=== PATIENT | female | born 1990 | race Caucasian/White ===

== ENCOUNTER 2019-01-05 07:52 | Inpatient (IN) | payer OTHER ==
[~2019-01-05] VITALS: Ht 154.9 cm; Wt 48.3 kg
[~2019-01-05 07:52] MED LIST: FERR27TA PO; PREN1TAB49 PO
[2019-01-05] MEDS ORDERED: ONDANSETRON (ODT) 4 MG TAB ODT STA (08:09)
[2019-01-05] MEDS ORDERED: HYDROCODONE/APAP (5/325) TAB PO ONE (08:30)
[2019-01-05] MEDS ORDERED: SOD CHLORIDE 0.9% 1,000 ML IV STA (08:43)
[2019-01-05] MEDS ORDERED: KETOROLAC 30 MG INJ IV STA (08:43)
[2019-01-05] MEDS ORDERED: CEFTRIAXONE 1 GM/50 ML (PMX) 50 ML IVPB ONE (09:00)
--- NOTE | 2019-01-05 11:12 | EN ---
Date/Time of Note Date/Time of Note DATE: 01/05/19 TIME: 11:11 ER Progress Note I have discussed the patient along with the PA and/or REHAB MANAGER provider. I agree with the evaluation and plan of care. Please see their documentation for full ER course and evaluation. In short: Patient presents with flank pain, hematuria Assessment and plan: Patient with evidence of urinary tract infection and ureteral stone concerning for infected stone. The patient is hemodynamically stable, given appropriate antibiotics but warrants hospitalization and urology consultation. I spoke with Dr. Lezama who agrees. Accepting care team and consultations: I discussed the current laboratory data, diagnostic imaging and emergency care provided. Admitting team: Dr. Wilson Admitting team indication: Insurance directed YOMAIRA MCDONOUGH MD Jan 05, 2019 11:12
[2019-01-05] MEDS ORDERED: ACETAMINOPHEN 325 MG TAB PO PRN (11:30)
[2019-01-05] MEDS ORDERED: LORAZEPAM 2 MG INJ IV PRN (11:30)
[2019-01-05] MEDS ORDERED: ALBUTEROL/IPRATROPIUM (NEB) 3 ML AMP HHN PRN (11:30)
[2019-01-05] MEDS ORDERED: DOCUSATE SODIUM 100 MG CAP PO PRN (11:30)
[2019-01-05] MEDS ORDERED: NACL 0.9% 3 ML SYG IV SCH (11:30)
[2019-01-05] MEDS ORDERED: MAGNESIUM HYDROXIDE 30ML CUP PO PRN (11:30)
[2019-01-05] MEDS ORDERED: hydrALAzine 20 MG INJ IV PRN (11:30)
[2019-01-05] MEDS ORDERED: NITROGLYCERIN (SL) 0.4 MG TAB SL PRN (11:30)
[2019-01-05] MEDS ORDERED: ONDANSETRON 4 MG INJ IV PRN ×2 (11:30)
[2019-01-05] MEDS ORDERED: morphine 2 MG INJ IV PRN (11:30)
[2019-01-05] MEDS: SOD CHLORIDE 0.9% 1,000 ML IV SCH ×2 (11:55→22:54)
[2019-01-05 13:04] VITALS: BP 132/72; PULSE 86; RESP 20
--- NOTE | 2019-01-05 13:25 | ERD ---
ER Documentation Chief Complaint Chief Complaint painful urination since yesterday, took azo pain worse today HPI 28-year-old female presenting with dysuria times 1 day. She is taking Azo. She has some severe pain to the right flank with no fevers. She denies hematuria. Has never had this before. Has not taken medication for pain. No other medical problems. NKDA. Surgical history denies. Social history denies ROS All systems reviewed and are negative except as per history of present illness. Medications Home Meds Reported Medications Ferrous Sulfate (Iron) 1 Tab Tablet, 1 TAB PO 08/10/12 Vits W-Ca,Fe,Fa(<1MG) () 1 Tab Tablet, 1 TAB PO 08/10/12 Allergies Allergies: Coded Allergies: No Known Allergies (Verified Allergy, Mild, 08/10/12) PMhx/Soc History of Surgery: No Anesthesia Reaction: No Hx Neurological Disorder: No Hx Respiratory Disorders: No Hx Cardiac Disorders: No Hx Psychiatric Problems: No Hx Miscellaneous Medical Probl: No Hx Alcohol Use: No Hx Substance Use: No Hx Tobacco Use: No Smoking Status: Never smoker FmHx Family History: No diabetes, No coronary disease, No other Physical Exam Vitals Vital Signs Date Temp Pulse Resp B/P (MAP) Pulse Ox O2 O2 Flow FiO2 Time Delivery Rate 01/05/19 98.1 109 18 127/70 100 07:53 (89) Physical Exam GENERAL: The patient is well-appearing, well-nourished, in no acute distress HEENT: Atraumatic. Conjunctivae are pink. Pupils equal, round, and reactive to light. There is no scleral icterus. Tympanic membranes clear bilaterally. Oropharynx clear. NECK: C-spine is soft and supple. There is no meningismus. There is no cervical lymphadenopathy. CHEST: Clear to auscultation bilaterally. There are no rales, wheezes or rhonchi. HEART: Regular rate and rhythm. No murmurs, clicks, rubs or gallops. ABDOMEN:Soft, nontender and nondistended. Good bowel sounds. No rebound or guarding. No gross peritonitis. No gross organomegaly or masses. BACK: Right sided CVAT Result Diagram: 01/05/19 0856 01/05/19 0856 Results 24 hrs Laboratory Tests Test 01/05/19 08:14 01/05/19 08:18 4 08:56 Urine Color TRAVIS Urine Clarity SLIGHTLY CLOUDY Urine pH 5.0 Urine Specific [place] 1.018 Urine Ketones NEGATIVE mg/dL Urine Nitrite POSITIVE mg/dL Urine Bilirubin NEGATIVE mg/dL Urine Urobilinogen 2+ mg/dL Urine Leukocyte Esterase NEGATIVE Taylor/ul Urine Microscopic RBC > 182 /HPF Urine Microscopic WBC 15 /HPF Urine Squamous Epithelial Cells MODERATE /HPF Urine Bacteria FEW /HPF Urine Mucus FEW /HPF Urine Hemoglobin 3+ mg/dL Urine Glucose NEGATIVE mg/dL Urine Total Protein 1+ mg/dl POC Beta HCG, Qualitative NEGATIVE White Blood Count 19.4 10^3/ul Red Blood Count 5.64 10^6/ul Hemoglobin 15.5 g/dl Hematocrit 47.0 % Mean Corpuscular Volume 83.3 fl Mean Corpuscular Hemoglobin 27.5 pg Mean Corpuscular 33.0 g/dl Hemoglobin Concent Red Cell Distribution Width 12.0 % Platelet Count 277 10^3/UL Mean Platelet Volume 9.4 fl Immature Granulocytes % 0.600 % Neutrophils % 84.2 % Lymphocytes % 9.8 % Monocytes % 4.7 % Eosinophils % 0.3 % Basophils % 0.4 % Nucleated Red Blood Cells % 0.0 /100WBC Immature Granulocytes # 0.110 10^3/ul Neutrophils # 16.4 10^3/ul Lymphocytes # 1.9 10^3/ul Monocytes # 0.9 10^3/ul Eosinophils # 0.1 10^3/ul Basophils # 0.1 10^3/ul Nucleated Red Blood Cells # 0.0 10^3/ul Sodium Level 140 mmol/L Potassium Level 3.4 mmol/L Chloride Level 102 mmol/L Carbon Dioxide Level 26 mmol/L Anion Gap 12 Blood Urea Nitrogen 8 mg/dl Creatinine 0.62 mg/dl Est Glomerular Filtrat > 60 mL/min Rate mL/min Glucose Level 103 mg/dl Calcium Level 9.6 mg/dl Total Bilirubin 0.7 mg/dl Direct Bilirubin 0.00 mg/dl Indirect Bilirubin 0.7 mg/dl Aspartate Amino Transf (AST/SGOT) 24 IU/L Alanine 22 IU/L Aminotransferase (ALT/SGPT) Alkaline Phosphatase 93 IU/L Total Protein 7.8 g/dl Albumin 4.8 g/dl Globulin 3.00 g/dl Albumin/Globulin Ratio 1.60 Lipase 81 U/L Current Medications Medications Dose Sig/Bob Start Time Status Last (Trade) Ordered Route PRN Stop Time Admin Dose Reason Admin 1 tab ONCE ONCE 01/05/19 DC 01/05/19 Acetaminophen PO 08:30 01/05/19 08:16 / 08:31 Hydrocodone Bitart ([place] (5/325)) Ondansetron 4 mg ONCE STAT 01/05/19 DC 01/05/19 HCl (Zofran ODT 08:09 01/05/19 08:16 Odt) 08:11 Sodium 1,000 ml @ Q1H STAT 01/05/19 DC 01/05/19 Chloride 1,000 mls/hr IV 08:43 01/05/19 08:56 09:42 Ketorolac 30 mg ONCE STAT 01/05/19 DC 01/05/19 Tromethamine IV 08:43 01/05/19 08:57 (Toradol) 08:44 Ceftriaxone 50 ml @ ONCE ONCE 01/05/19 DC 01/05/19 Sodium 100 mls/hr IVPB 09:00 01/05/19 08:57 09:29 Procedures/MDM DIAGNOSTIC IMAGING REPORT Patient: JEREMY CHAVEZ : 1990 Age: 28 Sex: F MR #: [id number] DOS: 01/05/19 0843 Ordering MD: JEREL BELLO PA-C Location: E Room/Bed: PROCEDURE: CT abdomen and pelvis without contrast. CLINICAL INDICATION: Abdominal pain. Back pain. Dysuria. TECHNIQUE: CT scan of the abdomen and pelvis without contrast was performed and is reconstructed at 2.5 mm contiguous axial intervals from the dome of the diaphragm to the inferior pubic rami.. The patient was scanned without intravenous contrast. Sagittal and coronal reformatted images were obtained from the axial source images. The calculated radiation dose measures 243 mGy centimeters. The CTDI measures 85 mGy. Individualized dose optimization technique was used for the performance of this exam. This included 1. Automated exposure control. 2. Adjustment of the mA and / or kV according to the patient's size. 3. Use of iterative reconstructed technique. DICOM images are available COMPARISON: None. FINDINGS: The lung bases are clear of any infiltrate or nodule. No effusion is seen. The liver is of normal size, contour and attenuation with no solid mass or duct al dilatation. There is a 6 mm cyst on the anterior aspect of the left lobe of the liver. No gallstones are visualized. No splenic, adrenal or pancreatic abnormalities present. Kidneys are of normal size and contour. No calculus or masses seen. There is moderate right hydroureter nephrosis. Noted is a 6 mm calculus in the distal right ureter approximately 3 cm proximal to the ureterovesicular junction. There is right perinephric stranding. The left intrarenal collecting system and ureter are normal.. No bladder mass or stone is present. IUD is seen within the endometrial canal. No adnexal masses present. There is no aneurysm. No adenopathy is present. No bowel mass or obstruction is present. The appendix is normal. No phlegmon, ascites or pneumoperitoneum is visualized. The osseous structures are intact. IMPRESSION: Moderate right hydroureter nephrosis with 6 mm calculus distal ureter and mild perinephric stranding. Small hepatic cyst. ER Course: 1L NS given in ED. Rocephin given in ED. Urine culture sent. Case was discussed with Dr. Weaver and given patient has a calculus noted on CT with infection patient will be admitted for higher level care and observation. Patient is stable. MDM: 28-year-old female presenting with findings concerning for septic stone. P atient has pyelonephritis with stones and patient will be admitted for IV antibiotics and monitored care. Patient is stable at the time of admission. Patient is admitted for higher level care and observation. All questions answered at discharge JOHNNY BELLO PA-C Jan 05, 2019 13:25
[2019-01-05 13:56] VITALS: Ht 154.9 cm; Wt 48.3 kg
--- NOTE | 2019-01-05 14:58 | HP ---
DATE OF ADMISSION: 01/05/2019 CHIEF COMPLAINT: Right flank pain. HISTORY OF PRESENT ILLNESS: This is a 28-year-old female with past medical history: 1. Hypertension during occurred 2 years ago, who has been having right flank pain symptoms have been going on for the last day. She also has been complaining of some chills. Denies any feve r. Denies any hematuria. She said she was diagnosed with a UTI recently; it looks like 1 to 2 days ago and was taking some Azo pills, she called them, to treat the UTI, but she experienced right flank pain and was concerned about this and decided to come to the ER. Denies any upper or lower GI bleed ing. No significant nausea, vomiting, no fevers, no diarrhea or constipation. When she came in [facility], she had a CT scan abdomen and pelvis performed that shows signs of moderate right hydroureteroneph rosis with 6 mm calculus distal ureter and mild perinephric stranding, small hepatic cyst. She also was found to have a UTI and placed on antibiotics in the ER and is presently admitted to the med/surg unit. Patient also awaiting evaluation by urology team. PAST MEDICAL HISTORY: As above. ALLERGIES: No known drug allergies. MEDICATIONS AT HOME: Again, AZO pills for recent UTI. She does not specify which one. PAST SURGICAL HISTORY: She had tonsil surgery at age 10. FAMILY HISTORY: Noncontributory. SOCIAL HISTORY: Social drinker. Denies any IV drug abuse, no smoking history. PHYSICAL EXAMINATION: VITAL SIGNS: T-max 98.4, pulse 109 to 86, respirations 18 to 20, blood pressure is 132/72, satting a t 98% on room air. GENERAL: The patient is lying in bed, answering questions appropriately. No acute distress. HEENT: Pupils equal, round, react to light. Extraocular muscles intact. NECK: Supple, no thyromegaly. LUNGS: Clear to auscultation bilaterally. CARDIOVASCULAR: S1, S2 heard. No murmurs, rubs or gallops. ABDOMEN: Mild positive right CVA tenderness. Otherwise, normal bowel sounds. No rebound or guardin g. Nondistended. MUSCULOSKELETAL: No lower extremity edema bilaterally. NEUROLOGIC: No focal deficits. LABORATORIES: WBC 19.4, hemoglobin 15.5, hematocrit 47.0, platelets 277. The comprehensive metaboli c panel was normal. Lipase is normal. Potassium is a little low at 3.4. Beta hCG test is negative. Coags are negative. UA shows positive nitrites and negative leukocyte esterase. We mentioned CT a bdomen and pelvis findings. ASSESSMENT AND PLAN: A 28-year-old female with right flank pain for 1 day with signs of right kidney stone and UTIs. 1. Right flank pain secondary to right kidney stone and also UTI. Keep the patient n.p.o. for now. Give her IV fluids, pain control medications, check TSH, A1c, lipid panel. her broad spectrum antibiotics for now. Follow up recommendations from the urology team. 2. Deep venous thrombosis prophylaxis, heparin subcu. Dictated By: ÁNGELA SHERWOOD/LIZETH Conf#: [id number] DID#: [id number] CC: ÁNGELA BAIN;*EndCC*
--- NOTE | 2019-01-05 19:10 | CONS ---
Assessment/Plan Assessment/Plan Hospital Course (Demo Recall) 28-year-old female presented to the emergency room with severe right flank pain for 1 day. The pain was associated with nausea but no vomiting. Patient states that she had chills but no fever. She does have dysuria on and off. Upon admission CT scan of the abdomen and pelvis was done at that showed: Moderate right hydroureter nephrosis with 6 mm calculus distal ureter and mild perinephric stranding. Small hepatic cyst. Therefore a urological consultation was requested. Patient denies any prior history of kidney stones. She is a 3 para 3 and had no kidney problems during her pregnancies except for hypertension in the third trimester of the last . The patient does have pain in the right side of the abdomen and she has leukocytosis and also reports having dysuria. Impression: 6 mm right ureteral stone with hydronephrosis. Rule out urinary tract infection as well. Plan: We will do a urine culture to make sure there is no infection, cover her with antibiotics, strain the urine for stones and put her on tamsulosin. If she does not pass the stone in the next day I will do cystoscopy and right ureteroscopy with laser lithotripsy on 01/07/2019. Consultation Date/Type/Reason Admit Date/Time Jan 05, 2019 at 11:13 Date of Consultation: Jan 05, 2019 Type of Consult Urology Reason for Consultation Right ureteral stone Requesting Provider: ÁNGELA BAIN Date/Time of Note DATE: 01/05/19 TIME: 18:58 Hx of Present Illness 28-year-old female presented to the emergency room with severe right flank pain for 1 day. The pain was associated with nausea but no vomiting. Patient states that she had chills but no fever. She does have dysuria on and off. Upon admission CT scan of the abdomen and pelvis was done at that showed: Moderate right hydroureter nephrosis with 6 mm calculus distal ureter and mild perinephric stranding. Small hepatic cyst. Therefore a urological consultation was requested. Patient denies any prior history of kidney stones. She is a 3 para 3 and had no kidney problems during her pregnancies except for hypertension in the third trimester of the last . Constitutional: chills (Before admission) ENT: no complaints Respiratory: no complaints Cardiovascular: no complaints; No chest pain Gastrointestinal: no complaints, nausea Genitourinary: dysuria, flank pain (Right side); No hematuria Musculoskeletal: no complaints Skin: no complaints Neurologic: no complaints Endocrine: no complaints Lymphatic: no complaints Psychological: no complaints Immunologic: no complaints Past Medical History Medical History: hypertension (During the third trimester of last ), other (Anemia) Home Meds Reported Medications Ferrous Sulfate (Iron) 1 Tab Tablet, 1 TAB PO 08/10/12 Vits W-Ca,Fe,Fa(<1MG) () 1 Tab Tablet, 1 TAB PO 08/10/12 Medications Current Medications Ondansetron HCl (Zofran Inj) 4 mg BRIDGE ORDER PRN IV NAUSEA/VOMITING; Start 01/05/19 at 11:30; Stop 01/06/19 at 11:29 Acetaminophen (Tylenol Tab) 650 mg ER BRIDGE PRN PO .MILD PAIN 1-3 OR TEMP Last administered on 01/05/19at 16:03; Admin Dose 650 MG; Start 01/05/19 at 11:30; Stop 01/06/19 at 11:29 IV Flush (NS 3 ml) 3 ml PER PROTOCOL IV ; Start 01/05/19 at 11:30 Ondansetron HCl (Zofran Inj) 4 mg Q6H PRN IV NAUSEA/VOMITING; Start 01/05/19 at 11:30 Acetaminophen (Tylenol Tab) 650 mg Q6H PRN PO .PAIN 1-3 OR TEMP; Start 01/05/19 at 11:30 Acetaminophen/ Hydrocodone Bitart ([place] (5/325)) 1 tab Q6H PRN PO .MOD PAIN 4- 6; Start 01/05/19 at 11:30 Morphine Sulfate (morphine) 2 mg Q4H PRN IV .SEVERE PAIN 7-10; Start 01/05/19 at 11:30 Docusate Sodium (Colace) 100 mg Q12H PRN PO .CONSTIPATION; Start 01/05/19 at 11:30 Magnesium Hydroxide (Milk Of Mag) 30 ml DAILY PRN PO .CONSTIPATION; Start 01/05/19 at 11:30 Heparin Sodium (Porcine) (Heparin (5000 Units/1ml)) 5,000 unit Q12 SC ; Start 01/05/19 at 21:00 Lorazepam (Ativan) 0.5 mg Q6H PRN IV ANXIETY; Start 01/05/19 at 11:30 Sodium Chloride 1,000 ml @ 100 mls/hr Q10H IV Last administered on 01/05/19at 11:55; Admin Dose 100 MLS/HR; Start 01/05/19 at 11:14 Albuterol/ Ipratropium (Duoneb) 3 ml Q4H RESP THERAPY PRN HHN SHORTNESS OF BREATH; Start 01/05/19 at 11:30 Hydralazine HCl (Apresoline) 10 mg Q6H PRN IV ELEVATED BLOOD PRESSURE; Start 01/05/19 at 11:30 Ceftriaxone Sodium 50 ml @ 100 mls/hr Q24H IVPB ; Start 01/06/19 at 09:00 Nitroglycerin (Nitroglycerin (Sl Tab) 0.4 Mg) 1 tab Q5M PRN SL ANGINA; Start 01/05/19 at 11:30 Allergies: Coded Allergies: No Known Allergies (Verified Allergy, Mild, 08/10/12) Past Surgical History Past Surgical Hx: other (Tonsillectomy) Family History Significant Family History: other (No family history of kidney stones) Social History Alcohol Use: occasionally Smoking Status: Never smoker Drug Use: none Other Social History 3, para 3, 3 normal deliveries Exam/Review of Systems Exam Vitals Vital Signs Date Temp Pulse Resp B/P (MAP) Pulse Ox O2 O2 Flow FiO2 Time Delivery Rate 01/05/19 98.4 86 20 132/72 98 13:04 (92) 01/05/19 Room Air 12:39 Constitutional: alert, oriented Psych: no complaints Head: normocephalic Eyes: nl conjunctiva ENMT: nl external ears & nose Neck: supple, non-tender Respiratory: normal air movement; No wheezing Cardiovascular: No jugular venous distention (JVD) Gastrointestinal: soft, non-tender Genitourinary - Female: CVA tenderness (Mild on the right side of the abdomen), other (Pelvic exam no mass and no discharge) Extremities: normal pulses; No calf tenderness Neurological: nl mental status Skin: nl turgor Results Result Diagram: 01/05/19 0856 01/05/19 0856 Results 24hrs Laboratory Tests Test 01/05/19 08:14 01/05/19 08:18 01/05/19 08:56 01/05/19 11:43 Urine Color [place]VIS Urine Clarity SLIGHTLY CLOUDY A Urine pH 5.0 Urine Specific 1.018 [place] Urine Ketones NEGATIVE Urine Nitrite POSITIVE A Urine Bilirubin NEGATIVE Urine Urobilinogen 2+ H Urine Leukocyte NEGATIVE Esterase Urine Microscopic > 182 H RBC Urine Microscopic 15 H WBC Urine Squamous MODERATE Epithelial Cells Urine Bacteria FEW A Urine Mucus FEW A Urine Hemoglobin 3+ H Urine Glucose NEGATIVE Urine Total 1+ H Protein POC Beta HCG, NEGATIVE Qualitative White Blood Count 19.4 H Red Blood Count 5.64 H Hemoglobin 15.5 Hematocrit 47.0 Mean Corpuscular 83.3 Volume Mean Corpuscular 27.5 L Hemoglobin Mean Corpuscular 33.0 Hemoglobin Concent Red Cell 12.0 Distribution Width Platelet Count 277 Mean Platelet 9.4 Volume Immature 0.600 H Granulocytes % Neutrophils % 84.2 H Lymphocytes % 9.8 L Monocytes % 4.7 Eosinophils % 0.3 Basophils % 0.4 Nucleated Red 0.0 Blood Cells % Immature 0.110 H Granulocytes # Neutrophils # 16.4 H Lymphocytes # 1.9 Monocytes # 0.9 Eosinophils # 0.1 Basophils # 0.1 Nucleated Red 0.0 Blood Cells # Sodium Level 140 Potassium Level 3.4 L Chloride Level 102 Carbon Dioxide 26 Level Anion Gap 12 Blood Urea 8 Nitrogen Creatinine 0.62 Est Glomerular > 60 Filtrat Rate mL/min Glucose Level 103 Calcium Level 9.6 Total Bilirubin 0.7 Direct Bilirubin 0.00 Indirect Bilirubin 0.7 Aspartate Amino 24 Transf (AST/SGOT) Alanine 22 Aminotransferase ( ALT/SGPT) Alkaline 93 Phosphatase Total Protein 7.8 Albumin 4.8 Globulin 3.00 Albumin/Globulin 1.60 Ratio Lipase 81 Prothrombin Time 12.4 Prothrombin Time 1.0 Ratio INR International 0.91 Normalized Ratio Activated 26.[address] Time Test 01/05/19 11:44 Free Thyroxine 0.[address] scan of the abdomen and pelvis: Moderate right hydroureter nephrosis with 6 mm calculus distal ureter and mild perinephric stranding. Small hepatic cyst. Medications Medication Current Medications Ondansetron HCl (Zofran Inj) 4 mg BRIDGE ORDER PRN IV NAUSEA/VOMITING; Start 01/05/19 at 11:30; Stop 01/06/19 at 11:29 Acetaminophen (Tylenol Tab) 650 mg ER BRIDGE PRN PO .MILD PAIN 1-3 OR TEMP Last administered on 01/05/19at 16:03; Admin Dose 650 MG; Start 01/05/19 at 11:30; Stop 01/06/19 at 11:29 IV Flush (NS 3 ml) 3 ml PER PROTOCOL IV ; Start 01/05/19 at 11:30 Ondansetron HCl (Zofran Inj) 4 mg Q6H PRN IV NAUSEA/VOMITING; Start 01/05/19 at 11:30 Acetaminophen (Tylenol Tab) 650 mg Q6H PRN PO .PAIN 1-3 OR TEMP; Start 01/05/19 at 11:30 Acetaminophen/ Hydrocodone Bitart ([place] (5/325)) 1 tab Q6H PRN PO .MOD PAIN 4- 6; Start 01/05/19 at 11:30 Morphine Sulfate (morphine) 2 mg Q4H PRN IV .SEVERE PAIN 7-10; Start 01/05/19 at 11:30 Docusate Sodium (Colace) 100 mg Q12H PRN PO .CONSTIPATION; Start 01/05/19 at 11:30 Magnesium Hydroxide (Milk Of Mag) 30 ml DAILY PRN PO .CONSTIPATION; Start 01/05/19 at 11:30 Heparin Sodium (Porcine) (Heparin (5000 Units/1ml)) 5,000 unit Q12 SC ; Start 01/05/19 at 21:00 Lorazepam (Ativan) 0.5 mg Q6H PRN IV ANXIETY; Start 01/05/19 at 11:30 Sodium Chloride 1,000 ml @ 100 mls/hr Q10H IV Last administered on 01/05/19at 11:55; Admin Dose 100 MLS/HR; Start 01/05/19 at 11:14 Albuterol/ Ipratropium (Duoneb) 3 ml Q4H RESP THERAPY PRN HHN SHORTNESS OF BREATH; Start 01/05/19 at 11:30 Hydralazine HCl (Apresoline) 10 mg Q6H PRN IV ELEVATED BLOOD PRESSURE; Start 01/05/19 at 11:30 Ceftriaxone Sodium 50 ml @ 100 mls/hr Q24H IVPB ; Start 01/06/19 at 09:00 Nitroglycerin (Nitroglycerin (Sl Tab) 0.4 Mg) 1 tab Q5M PRN SL ANGINA; Start 01/05/19 at 11:30 LIANA ALFARO MD Jan 05, 2019 19:10
[2019-01-05 19:24] VITALS: BP 137/85; PULSE 95; RESP 18
[2019-01-05] MEDS: HEPARIN 5,000 UNIT/1 ML VIAL SC SCH (20:43)
[2019-01-05] MEDS: TAMSULOSIN (SR) 0.4 MG CAP PO SCH (20:44)
[2019-01-05] MEDS: HYDROCODONE/APAP (5/325) TAB PO PRN (23:47)
[2019-01-06 01:16] VITALS: BP 120/72; PULSE 97; RESP 16
[2019-01-06] MEDS: ACETAMINOPHEN 325 MG TAB PO PRN ×2 (03:37→17:09)
[2019-01-06] MEDS: SOD CHLORIDE 0.9% 1,000 ML IV SCH ×2 (07:14→17:14)
[2019-01-06 07:35] VITALS: BP 117/74; PULSE 97; RESP 20
[2019-01-06] MEDS: CEFTRIAXONE 1 GM/50 ML (PMX) 50 ML IVPB SCH (08:41)
[2019-01-06] MEDS: HEPARIN 5,000 UNIT/1 ML VIAL SC SCH ×2 (08:44→20:46)
--- NOTE | 2019-01-06 11:35 | PN ---
Date/Time of Note Date/Time of Note DATE: 01/06/19 TIME: 11:33 Assessment/Plan VTE Prophylaxis Risk score (from Nsg)>0 risk: 0 SCD applied (from Ns): No SCD contraindicated: other Pharmacological prophylaxis: heparin Lines/Catheters IV Catheter Type (from Nrs): Peripheral IV Urinary Cath still in place: No Assessment/Plan Hospital Course S: Patient seen by urology team yesterday, still having occasional pain symptoms. O: VS - see below PHYSICAL EXAMINATION: GENERAL: lying in bed, answering questions appropriately. No acute distress. HEENT: Pupils equal, round, react to light. Extraocular muscles intact. NECK: Supple, no thyromegaly. LUNGS: Clear to auscultation bilaterally. CARDIOVASCULAR: S1, S2 heard. No murmurs, rubs or gallops. ABDOMEN: less positive right CVA tenderness. Otherwise, normal bowel sounds. No rebound or guarding. Nondistended. MUSCULOSKELETAL: No lower extremity edema bilaterally. NEUROLOGIC: No focal deficits. ASSESSMENT AND PLAN: 28-year-old female with right flank pain for 1 day with signs of right kidney stone and UTI. 1. Right flank pain- secondary to right kidney stone and also UTI. -Continue IV fluids, pain control medications -For her UTI continue broad spectrum antibiotics for now, follow-up final urine culture results as well - Follow up recommendations from the urology team, they also recommend Flomax. Per their note patient does not passed over the next 24 hours likely for cystoscopy procedure then. 2. Slightly high triglycerides: Change diet to low-fat low-cholesterol Result Diagram: 01/06/19 0439 01/06/19438 Results 24hrs Laboratory Tests Test 01/05/19 11:43 01/05/19 11:44 01/05/19 19:38 01/06/19 04:39 Prothrombin Time 12.4 12.1 Prothrombin Time Ratio 1.0 0.9 INR International 0.91 0.89 Normalized Ratio Activated 26.0 26.2 Partial Thromboplast Time Free Thyroxine 0.88 White Blood Count 12.0 #H Red Blood Count 4.52 Hemoglobin 12.6 Hematocrit 38.0 Mean Corpuscular Volume 84.1 Mean Corpuscular 27.9 L Hemoglobin Mean Corpuscular 33.2 Hemoglobin Concent Red Cell Distribution 12.2 Width Platelet Count 213 # Mean Platelet Volume 9.7 Immature Granulocytes % 0.300 Neutrophils % 72.0 Lymphocytes % 20.8 Monocytes % 6.1 Eosinophils % 0.6 Basophils % 0.2 Nucleated Red Blood 0.0 Cells % Immature Granulocytes # 0.040 H Neutrophils # 8.7 H Lymphocytes # 2.5 Monocytes # 0.7 Eosinophils # 0.1 Basophils # 0.0 Nucleated Red Blood 0.0 Cells # Sodium Level 141 Potassium Level 3.9 Chloride Level 108 Carbon Dioxide Level 24 Anion Gap 9 Blood Urea Nitrogen 7 Creatinine 0.59 Est Glomerular Filtrat > 60 Rate mL/min Glucose Level 89 Hemoglobin A1c 5.0 Calcium Level 8.8 Phosphorus Level 3.5 Magnesium Level 2.0 Triglycerides Level 166 H Cholesterol Level 144 LDL Cholesterol, 53 Calculated HDL Cholesterol 58 Cholesterol/HDL Ratio 2.4 Thyroid Stimulating 2.140 Hormone (TSH) Exam/Review of Systems Exam Vitals Vital Signs Date Temp Pulse Resp B/P (MAP) Pulse Ox O2 O2 Flow FiO2 Time Delivery Rate 01/06/19 98.4 97 20 117/74 98 07:35 (88) 01/05/19 Room Air 12:39 Intake and Output 01/05/19 01/05/19 01/06/19 1515:00 23:00 07:00 IntakeIntake Total 1050 ml 1000 ml 4100 ml OutputOutput Total 1600 ml 3000 ml BalanceBalance 1050 ml -600 ml 1100 ml Results Results 24hrs Laboratory Tests Test 01/05/19 11:43 01/05/19 11:44 01/05/19 19:38 01/06/19 04:39 Prothrombin Time 12.4 12.1 Prothrombin Time Ratio 1.0 0.9 INR International 0.91 0.89 Normalized Ratio Activated 26.0 26.2 Partial Thromboplast Time Free Thyroxine 0.88 White Blood Count 12.0 #H Red Blood Count 4.52 Hemoglobin 12.6 Hematocrit 38.0 Mean Corpuscular Volume 84.1 Mean Corpuscular 27.9 L Hemoglobin Mean Corpuscular 33.2 Hemoglobin Concent Red Cell Distribution 12.2 Width Platelet Count 213 # Mean Platelet Volume 9.7 Immature Granulocytes % 0.300 Neutrophils % 72.0 Lymphocytes % 20.8 Monocytes % 6.1 Eosinophils % 0.6 Basophils % 0.2 Nucleated Red Blood 0.0 Cells % Immature Granulocytes # 0.040 H Neutrophils # 8.7 H Lymphocytes # 2.5 Monocytes # 0.7 Eosinophils # 0.1 Basophils # 0.0 Nucleated Red Blood 0.0 Cells # Sodium Level 141 Potassium Level 3.9 Chloride Level 108 Carbon Dioxide Level 24 Anion Gap 9 Blood Urea Nitrogen 7 Creatinine 0.59 Est Glomerular Filtrat > 60 Rate mL/min Glucose Level 89 Hemoglobin A1c 5.0 Calcium Level 8.8 Phosphorus Level 3.5 Magnesium Level 2.0 Triglycerides Level 166 H Cholesterol Level 144 LDL Cholesterol, 53 Calculated HDL Cholesterol 58 Cholesterol/HDL Ratio 2.4 Thyroid Stimulating 2.140 Hormone (TSH) Medications Medication Current Medications IV Flush (NS 3 ml) 3 ml PER PROTOCOL IV ; Start 01/05/19 at 11:30 Ondansetron HCl (Zofran Inj) 4 mg Q6H PRN IV NAUSEA/VOMITING; Start 01/05/19 at 11:30 Acetaminophen (Tylenol Tab) 650 mg Q6H PRN PO .PAIN 1-3 OR TEMP Last administered on 01/06/19at 03:37; Admin Dose 650 MG; Start 01/05/19 at 11:30 Acetaminophen/ Hydrocodone Bitart ([place] (5/325)) 1 tab Q6H PRN PO .MOD PAIN 4- 6 Last administered on 01/05/19at 23:47; Admin Dose 1 TAB; Start 01/05/19 at 11:30 Morphine Sulfate (morphine) 2 mg Q4H PRN IV .SEVERE PAIN 7-10 Last administered on 01/06/19at 10:36; Admin Dose 2 MG; Start 01/05/19 at 11:30 Docusate Sodium (Colace) 100 mg Q12H PRN PO .CONSTIPATION; Start 01/05/19 at 11:30 Magnesium Hydroxide (Milk Of Mag) 30 ml DAILY PRN PO .CONSTIPATION; Start 01/05/19 at 11:30 Heparin Sodium (Porcine) (Heparin (5000 Units/1ml)) 5,000 unit Q12 SC Last administered on 01/06/19at 08:44; Admin Dose 5,000 UNIT; Start 01/05/19 at 21:00 Lorazepam (Ativan) 0.5 mg Q6H PRN IV ANXIETY; Start 01/05/19 at 11:30 Sodium Chloride 1,000 ml @ 100 mls/hr Q10H IV Last administered on 01/06/19at 07:14; Admin Dose 100 MLS/HR; Start 01/05/19 at 11:14 Albuterol/ Ipratropium (Duoneb) 3 ml Q4H RESP THERAPY PRN HHN SHORTNESS OF BREATH; Start 01/05/19 at 11:30 Hydralazine HCl (Apresoline) 10 mg Q6H PRN IV ELEVATED BLOOD PRESSURE; Start 01/05/19 at 11:30 Ceftriaxone Sodium 50 ml @ 100 mls/hr Q24H IVPB Last administered on 01/06/19at 08:41; Admin Dose 100 MLS/HR; Start 01/06/19 at 09:00 Nitroglycerin (Nitroglycerin (Sl Tab) 0.4 Mg) 1 tab Q5M PRN SL ANGINA; Start 01/05/19 at 11:30 Tamsulosin HCl (Flomax) 0.4 mg HS PO Last administered on 01/05/19at 20:44; Admin Dose 0.4 MG; Start 01/05/19 at 21:00 ÁNGELA BAIN Jan 06, 2019 11:35
[2019-01-06] MEDS: HYDROCODONE/APAP (5/325) TAB PO PRN ×2 (14:13→20:46)
[2019-01-06 14:20] VITALS: BP 110/70; PULSE 88; RESP 20
[2019-01-06 19:31] VITALS: BP 133/80; PULSE 87; RESP 18
[2019-01-06] MEDS: TAMSULOSIN (SR) 0.4 MG CAP PO SCH (20:46)
--- NOTE | 2019-01-06 21:08 | CONS ---
Consult Date/Type/Reason Admit Date/Time Jan 05, 2019 at 11:13 Initial Consult Date 01/05/19 Type of Consultation: Urology Reason for Consultation Right ureteral stone Requesting Provider: ÁNGELA BAIN Date/Time of Note DATE: 01/06/19 TIME: 21:04 Subjective Patient had pain again today. Objective Vitals Vital Signs Date Temp Pulse Resp B/P (MAP) Pulse Ox O2 O2 Flow FiO2 Time Delivery Rate 01/06/19 98.9 87 18 133/80 100 19:31 (97) 01/05/19 Room Air 12:39 Intake and Output 01/05/19 01/05/19 01/06/19 1414:59 22:59 06:59 IntakeIntake Total 1050 ml 1000 ml 4100 ml OutputOutput Total 1600 ml 3000 ml BalanceBalance 1050 ml -600 ml 1100 ml Exam Right flank tenderness. Results/Medications Result Diagram: 01/06/19 0439 01/06/19 0439 Results 24 hrs Laboratory Tests Test 01/06/19 04:39 01/06/19 14:50 White Blood Count 12.0 #H Red Blood Count 4.52 Hemoglobin 12.6 Hematocrit 38.0 Mean Corpuscular Volume 84.1 Mean Corpuscular Hemoglobin 27.9 L Mean Corpuscular Hemoglobin Concent 33.2 Red Cell Distribution Width 12.2 Platelet Count 213 # Mean Platelet Volume 9.7 Immature Granulocytes % 0.300 Neutrophils % 72.0 Lymphocytes % 20.8 Monocytes % 6.1 Eosinophils % 0.6 Basophils % 0.2 Nucleated Red Blood Cells % 0.0 Immature Granulocytes # 0.040 H Neutrophils # 8.7 H Lymphocytes # 2.5 Monocytes # 0.7 Eosinophils # 0.1 Basophils # 0.0 Nucleated Red Blood Cells # 0.0 Sodium Level 141 Potassium Level 3.9 Chloride Level 108 Carbon Dioxide Level 24 Anion Gap 9 Blood Urea Nitrogen 7 Creatinine 0.59 Est Glomerular Filtrat Rate mL/min > 60 Glucose Level 89 Hemoglobin A1c 5.0 Calcium Level 8.8 Phosphorus Level 3.5 Magnesium Level 2.0 Triglycerides Level 166 H Cholesterol Level 144 LDL Cholesterol, Calculated 53 HDL Cholesterol 58 Cholesterol/HDL Ratio 2.4 Thyroid Stimulating Hormone (TSH) 2.140 Urine Test NEGATIVE Home Meds Reported Medications Ferrous Sulfate (Iron) 1 Tab Tablet, 1 TAB PO 08/10/12 Vits W-Ca,Fe,Fa(<1MG) () 1 Tab Tablet, 1 TAB PO 08/10/12 Medications Current Medications IV Flush (NS 3 ml) 3 ml PER PROTOCOL IV ; Start 01/05/19 at 11:30 Ondansetron HCl (Zofran Inj) 4 mg Q6H PRN IV NAUSEA/VOMITING; Start 01/05/19 at 11:30 Acetaminophen (Tylenol Tab) 650 mg Q6H PRN PO .PAIN 1-3 OR TEMP Last administered on 01/06/19 17:09; Admin Dose 650 MG; Start 01/05/19 at 11:30 Acetaminophen/ Hydrocodone Bitart ([place] (5/325)) 1 tab Q6H PRN PO .MOD PAIN 4- 6 Last administered on 01/06/19 20:46; Admin Dose 1 TAB; Start 01/05/19 at 11:30 Morphine Sulfate (morphine) 2 mg Q4H PRN IV .SEVERE PAIN 7-10 Last administered on 01/06/19 10:36; Admin Dose 2 MG; Start 01/05/19 at 11:30 Docusate Sodium (Colace) 100 mg Q12H PRN PO .CONSTIPATION; Start 01/05/19 at 11:30 Magnesium Hydroxide (Milk Of Mag) 30 ml DAILY PRN PO .CONSTIPATION; Start 01/05/19 at 11:30 Lorazepam (Ativan) 0.5 mg Q6H PRN IV ANXIETY; Start 01/05/19 at 11:30 Sodium Chloride 1,000 ml @ 100 mls/hr Q10H IV Last administered on 01/06/19at 07:14; Admin Dose 100 MLS/HR; Start 01/05/19 at 11:14 Albuterol/ Ipratropium (Duoneb) 3 ml Q4H RESP THERAPY PRN HHN SHORTNESS OF BREATH; Start 01/05/19 at 11:30 Hydralazine HCl (Apresoline) 10 mg Q6H PRN IV ELEVATED BLOOD PRESSURE; Start 01/05/19 at 11:30 Ceftriaxone Sodium 50 ml @ 100 mls/hr Q24H IVPB Last administered on 01/06/19 08:41; Admin Dose 100 MLS/HR; Start 01/06/19 at 09:00 Nitroglycerin (Nitroglycerin (Sl Tab) 0.4 Mg) 1 tab Q5M PRN SL ANGINA; Start 01/05/19 at 11:30 Tamsulosin HCl (Flomax) 0.4 mg HS PO Last administered on 01/06/19at 20:46; Admin Dose 0.4 MG; Start 01/05/19 at 21:00 Assessment/Plan Hospital Course (Demo Recall) 28-year-old female presented to the emergency room with severe right flank pain for 1 day. The pain was associated with nausea but no vomiting. Patient states that she had chills but no fever. She does have dysuria on and off. Upon adm ission CT scan of the abdomen and pelvis was done at that showed: Moderate right hydroureter nephrosis with 6 mm calculus distal ureter and mild perinephric stranding. Small hepatic cyst. Therefore a urological consultation was requested. Patient denies any prior history of kidney stones. She is a 3 para 3 and had no kidney problems during her pregnancies except for hypertension in the third trimester of the last . The patient does have pain in the right side of the abdomen and the leukocytosis has improved but it still a little bit high KUB was done today and showed the stone in the distal right ureter. Impression: 6 mm right ureteral stone with hydronephrosis. Rule out urinary tract infection as well. Plan: Cystoscopy, right ureteroscopy, laser lithotripsy and insertion of right ureteral JJ stent. I explained the procedure to the patient and answered all of her questions. She is agreeable to proceed. LIANA ALFARO MD Jan 06, 2019 21:08
[2019-01-07] VITALS (22 sets, daily range): BP systolic 114–148; BP diastolic 62–85; PULSE 74–113; RESP 12–23
[2019-01-07] MEDS: SOD CHLORIDE 0.9% 1,000 ML IV SCH ×6 (03:14→23:14)
[2019-01-07] MEDS ORDERED: DESFLURANE 15 MIN ONE (07:00)
[2019-01-07] MEDS ORDERED: POTASSIUM CHLORIDE (SR) 20 MEQ TAB PO STA (08:51)
[2019-01-07] MEDS: CEFTRIAXONE 1 GM/50 ML (PMX) 50 ML IVPB SCH (08:59)
--- NOTE | 2019-01-07 12:29 | PREAC ---
Date/Time of Note Date/Time of Note DATE: 01/07/19 TIME: 12:27 Anesthesia Eval and Record Evaluation Time Pre-Procedure Interview DATE: 01/07/19 TIME: 12:27 Age 28 Sex female NPO: 8 hrs (WILL COMPLETE 8 HOUR NPO STATUS AT 1700 ) Preoperative diagnosis RIGHT URETERAL STONE Planned procedure CYSTOSCOPY, RIGHT URETEROSCOPY, LASER LITHOTRIPSY, RIGHT JJ STENT Past Medical History Past Medical History: Includes Renal: Other (KIDNEY STONES) Hepatic: Other (SMALL HEPATIC CYST PER CT SCAN ) Surgery & Anesthesia Issues No known issue Meds Anticoagulation: No Beta Tushar within 24 hr: No Reason Beta Tushar not given: Pt. not on B-Tushar Reported Medications Ferrous Sulfate (Iron) 1 Tab Tablet, 1 TAB PO 08/10/12 Vits W-Ca,Fe,Fa(<1MG) () 1 Tab Tablet, 1 TAB PO 08/10/12 Current Medications IV Flush (NS 3 ml) 3 ml PER PROTOCOL IV ; Start 01/05/19 at 11:30 Ondansetron HCl (Zofran Inj) 4 mg Q6H PRN IV NAUSEA/VOMITING; Start 01/05/19 at 11:30 Acetaminophen (Tylenol Tab) 650 mg Q6H PRN PO .PAIN 1-3 OR TEMP Last administered on 01/06/19at 17:09; Admin Dose 650 MG; Start 01/05/19 at 11:30 Acetaminophen/ Hydrocodone Bitart ([place] (5/325)) 1 tab Q6H PRN PO .MOD PAIN 4- 6 Last administered on 01/06/19at 20:46; Admin Dose 1 TAB; Start 01/05/19 at 11:30 Morphine Sulfate (morphine) 2 mg Q4H PRN IV .SEVERE PAIN 7-10 Last administered on 01/06/19at 10:36; Admin Dose 2 MG; Start 01/05/19 at 11:30 Docusate Sodium (Colace) 100 mg Q12H PRN PO .CONSTIPATION; Start 01/05/19 at 11:30 Magnesium Hydroxide (Milk Of Mag) 30 ml DAILY PRN PO .CONSTIPATION; Start 01/05/19 at 11:30 Lorazepam (Ativan) 0.5 mg Q6H PRN IV ANXIETY; Start 01/05/19 at 11:30 Sodium Chloride 1,000 ml @ 100 mls/hr Q10H IV Last administered on 01/07/19at 05:45; Admin Dose 100 MLS/HR; Start 01/05/19 at 11:14 Albuterol/ Ipratropium (Duoneb) 3 ml Q4H RESP THERAPY PRN HHN SHORTNESS OF BREATH; Start 01/05/19 at 11:30 Hydralazine HCl (Apresoline) 10 mg Q6H PRN IV ELEVATED BLOOD PRESSURE; Start 01/05/19 at 11:30 Ceftriaxone Sodium 50 ml @ 100 mls/hr Q24H IVPB Last administered on 01/07/19at 08:59; Admin Dose 100 MLS/HR; Start 01/06/19 at 09:00 Nitroglycerin (Nitroglycerin (Sl Tab) 0.4 Mg) 1 tab Q5M PRN SL ANGINA; Start 01/05/19 at 11:30 Tamsulosin HCl (Flomax) 0.4 mg HS PO Last administered on 01/06/19at 20:46; Admin Dose 0.4 MG; Start 01/05/19 at 21:00 Meds reviewed: Yes Allergies Coded Allergies: No Known Allergies (Verified Allergy, Mild, 08/10/12) Allergies Reviewed: Yes Labs/Studies Labs Reviewed: Reviewed by anesthesiologist Result Diagram: 01/07/19 0456 01/07/19 0456 Laboratory Tests 01/07/19 04:56 test: Negative Pre-procedure Exam Last vitals Vital Signs Date Temp Pulse Resp B/P (MAP) Pulse Ox O2 O2 Flow FiO2 Time Delivery Rate 01/07/19 97.6 100 17 127/81 99 07:55 (96) 01/05/19 Room Air 12:39 Airway: Adequate mouth opening, Adequate thyromental dist Mallampati: Mallampati I Teeth: Normal Lung: Normal Heart: Normal ASA Physical Status ASA physical status: 1 Emergency: None Planned Anesthetic General/MAC: LMA Planned Pain Management Parenteral pain med, Local by surgeon Pre-operative Attestations Prior to commencing anesthesia and surgery, the patient was re-evaluated, there was verification of: *The patient's identity *The results of appropriate recent lab work and preoperative vital signs *The above evaluation not changing prior to induction *Anesthetic plan, risk benefits, alternative and complications discussed with patient/family; questions answered; patient/family understands, accepts and w ishes to proceed. SALAPATE,EDMUNDO Jan 07, 2019 12:29
--- NOTE | 2019-01-07 14:10 | PN ---
Date/Time of Note Date/Time of Note DATE: 01/07/19 TIME: 14:09 Assessment/Plan VTE Prophylaxis Risk score (from Ns)>0 risk: 0 SCD applied (from Ns): No SCD contraindicated: other Pharmacological prophylaxis: heparin Lines/Catheters IV Catheter Type (from [facility] Peripheral IV Urinary Cath still in place: No Assessment/Plan Hospital Course S: Patient had no acute events overnight. Awaiting for cystoscopy procedure later today. O: VS - see below PHYSICAL EXAMINATION: GENERAL: lying in bed, answering questions appropriately. No acute distress. HEENT: Pupils equal, round, react to light. Extraocular muscles intact. NECK: Supple, no thyromegaly. LUNGS: Clear to auscultation bilaterally. CARDIOVASCULAR: S1, S2 heard. No murmurs, rubs or gallops. ABDOMEN: less positive right CVA tenderness. Otherwise, normal bowel sounds. No rebound or guarding. Nondistended. MUSCULOSKELETAL: No lower extremity edema bilaterally. NEUROLOGIC: No focal deficits. ASSESSMENT AND PLAN: 28-year-old female with right flank pain for 1 day with signs of right kidney stone and UTI. 1. Right flank pain- secondary to right kidney stone and also UTI. -Continue IV fluids, pain control medications -For her UTI continue broad spectrum antibiotics for now, follow-up final urine culture results as well - Follow up recommendations from the urology team, continue Flomax and they are planning for cystoscopy procedure later today, follow-up post procedure r ecommendations 2. Slightly high triglycerides: low-fat low-cholesterol Result Diagram: 01/07/19 0456 01/07/19 0456 Results 24hrs Laboratory Tests Test 01/06/19 14:50 01/07/19 04:56 Urine Test NEGATIVE White Blood Count 10.2 Red Blood Count 4.30 Hemoglobin 12.1 Hematocrit 36.1 L Mean Corpuscular Volume 84.0 Mean Corpuscular Hemoglobin 28.1 L Mean Corpuscular Hemoglobin Concent 33.5 Red Cell Distribution Width 11.9 Platelet Count 224 Mean Platelet Volume 9.4 Immature Granulocytes % 0.400 Neutrophils % 61.1 Lymphocytes % 30.9 Monocytes % 6.0 Eosinophils % 1.3 Basophils % 0.3 Nucleated Red Blood Cells % 0.0 Immature Granulocytes # 0.040 H Neutrophils # 6.3 Lymphocytes # 3.2 H Monocytes # 0.6 Eosinophils # 0.1 Basophils # 0.0 Nucleated Red Blood Cells # 0.0 Sodium Level 142 Potassium Level 3.4 L Chloride Level 111 H Carbon Dioxide Level 26 Anion Gap 5 Blood Urea Nitrogen 5 L Creatinine 0.48 Est Glomerular Filtrat Rate mL/min > 60 Glucose Level 86 Calcium Level 8.6 Exam/Review of Systems Exam Vitals Vital Signs Date Temp Pulse Resp B/P (MAP) Pulse Ox O2 O2 Flow FiO2 Time Delivery Rate 01/07/19 97.6 100 17 127/81 99 07:55 (96) 01/05/19 Room Air 12:39 Intake and Output 01/06/19 01/06/19 01/07/19 1515:00 23:00 07:00 IntakeIntake Total 450 ml 1800 ml 1000 ml OutputOutput Total 500 ml 400 ml 1000 ml BalanceBalance -50 ml 1400 ml 0 ml Results Results 24hrs Laboratory Tests Test 01/06/19 14:50 01/07/19 04:56 Urine Test NEGATIVE White Blood Count 10.2 Red Blood Count 4.30 Hemoglobin 12.1 Hematocrit 36.1 L Mean Corpuscular Volume 84.0 Mean Corpuscular Hemoglobin 28.1 L Mean Corpuscular Hemoglobin Concent 33.5 Red Cell Distribution Width 11.9 Platelet Count 224 Mean Platelet Volume 9.4 Immature Granulocytes % 0.400 Neutrophils % 61.1 Lymphocytes % 30.9 Monocytes % 6.0 Eosinophils % 1.3 Basophils % 0.3 Nucleated Red Blood Cells % 0.0 Immature Granulocytes # 0.040 H Neutrophils # 6.3 Lymphocytes # 3.2 H Monocytes # 0.6 Eosinophils # 0.1 Basophils # 0.0 Nucleated Red Blood Cells # 0.0 Sodium Level 142 Potassium Level 3.4 L Chloride Level 111 H Carbon Dioxide Level 26 Anion Gap 5 Blood Urea Nitrogen 5 L Creatinine 0.48 Est Glomerular Filtrat Rate mL/min > 60 Glucose Level 86 Calcium Level 8.6 Medications Medication Current Medications IV Flush (NS 3 ml) 3 ml PER PROTOCOL IV ; Start 01/05/19 at 11:30 Ondansetron HCl (Zofran Inj) 4 mg Q6H PRN IV NAUSEA/VOMITING; Start 01/05/19 at 11:30 Acetaminophen (Tylenol Tab) 650 mg Q6H PRN PO .PAIN 1-3 OR TEMP Last administered on 01/06/19at 17:09; Admin Dose 650 MG; Start 01/05/19 at 11:30 Acetaminophen/ Hydrocodone Bitart ([place] (5/325)) 1 tab Q6H PRN PO .MOD PAIN 4- 6 Last administered on 01/06/19 20:46; Admin Dose 1 TAB; Start 01/05/19 at 11:30 Morphine Sulfate (morphine) 2 mg Q4H PRN IV .SEVERE PAIN 7-10 Last administered on 01/06/19 10:36; Admin Dose 2 MG; Start 01/05/19 at 11:30 Docusate Sodium (Colace) 100 mg Q12H PRN PO .CONSTIPATION; Start 01/05/19 at 11:30 Magnesium Hydroxide (Milk Of Mag) 30 ml DAILY PRN PO .CONSTIPATION; Start 01/05/19 at 11:30 Lorazepam (Ativan) 0.5 mg Q6H PRN IV ANXIETY; Start 01/05/19 at 11:30 Sodium Chloride 1,000 ml @ 100 mls/hr Q10H IV Last administered on 01/07/19 05:45; Admin Dose 100 MLS/HR; Start 01/05/19 at 11:14 Albuterol/ Ipratropium (Duoneb) 3 ml Q4H RESP THERAPY PRN HHN SHORTNESS OF BREATH; Start 01/05/19 at 11:30 Hydralazine HCl (Apresoline) 10 mg Q6H PRN IV ELEVATED BLOOD PRESSURE; Start 01/05/19 at 11:30 Ceftriaxone Sodium 50 ml @ 100 mls/hr Q24H IVPB Last administered on 01/07/19 08:59; Admin Dose 100 MLS/HR; Start 01/06/19 at 09:00 Nitroglycerin (Nitroglycerin (Sl Tab) 0.4 Mg) 1 tab Q5M PRN SL ANGINA; Start 01/05/19 at 11:30 Tamsulosin HCl (Flomax) 0.4 mg HS PO Last administered on 01/06/19 20:46; Admin Dose 0.4 MG; Start 01/05/19 at 21:00 ÁNGELA BAIN Jan 07, 2019 14:10
[2019-01-07] MEDS ORDERED: PROPOFOL 20 ML ONE (17:12)
[2019-01-07] MEDS ORDERED: ONDANSETRON 4 MG INJ ONE (17:13)
[2019-01-07] MEDS ORDERED: MIDAZOLAM 1 MG/ML 2 ML INJ ONE (17:13)
[2019-01-07] MEDS ORDERED: METOCLOPRAMIDE 10 MG INJ ONE (17:13)
[2019-01-07] MEDS ORDERED: FENTAnyl 50 MCG/ML VIAL ONE (17:13)
--- NOTE | 2019-01-07 17:28 | HPN ---
Date/Time of Note Date/Time of Note DATE: 01/07/19 TIME: 17:27 Interval H&P Admission Note Pt. seen H&P reviewed: No system changes LIANA ALFARO MD Jan 07, 2019 17:28
[2019-01-07] MEDS ORDERED: MEPERIDINE 25 MG INJ IV PRN (17:30)
[2019-01-07] MEDS ORDERED: HYDROmorphONE 1 MG/5 ML IV SYRINGE IV PRN ×3 (17:30)
[2019-01-07] MEDS ORDERED: FENTAnyl 50 MCG/ML VIAL IV PRN ×3 (17:30)
[2019-01-07] MEDS ORDERED: ONDANSETRON 4 MG INJ IV PRN (17:30)
[2019-01-07] MEDS ORDERED: DIPHENHYDRAMINE 50 MG INJ IV PRN (17:30)
[2019-01-07] MEDS ORDERED: CEFAZOLIN 1 GM INJ ONE (17:39)
[2019-01-07] MEDS ORDERED: IOHEXOL 300MG/ML 30 ML BTL ONE (17:51)
--- NOTE | 2019-01-07 18:28 | OPR ---
Date/Time of Note Date/Time of Note DATE: 01/07/19 TIME: 18:24 Operative Report Procedure Date: Jan 07, 2019 Preoperative Diagnosis Distal right ureteral stone Postoperative Diagnosis Same Operation/Procedure Performed Cystoscopy, right ureteroscopy, laser lithotripsy and insertion of right ureteral JJ stent 6 [place] by 22 cm long Surgeon see signature line Swine Nutritionist blood bank technicianjody Roland Anesthesia Type: general Anesthesiologist: RAFIQ SHAIKH MD Estimated Blood Loss: none Transfusion none Specimen Stone fragments Grafts/Implants Right ureteral JJ stent 6 [place] by 22 cm long. Complications none Pt Condition Post Procedure: stable Disposition: PACU Indications Distal right ureteral stone with obstruction Procedure Description The patient was brought to the operating room and general anesthesia was induced. The patient received 2 g of Ancef IV at the start of the procedure. Timeout was done and the patient was identified by her name,birthdate and the procedure and the side of the procedure. The patient was then positioned in the lithotomy position and the genital area was prepped and draped in the usual sterile manner. A 21 [place] cystoscope sheath was introduced into the bladder and urine was collected for culture and sensitivity. Right ureteral orifice was identified and then cannulated with a 5 [place] open ended ureteral catheter. A 0.035 zip wire was advanced through the open ended catheter all the way up to the kidney. The open-ended was removed leaving the zip wire in place. The open-ended was then introduced through the second working channel of the scope and the ureteral orifice was cannulated again and a 0.035 sensor wire was passed all the way up to the kidney. The open-ended was removed leaving the sensor wire in place. Then the cystoscope was removed. The sensor wire was used as a safety wire and the zip wire was used to advance the rigid ureteroscope on it into the ureter. The stone was then visualized and broken with the holmium laser into pieces. These pieces were basketed and dropped into the bladder until the ureter was free of stone fragments. The ureteroscope was then removed. Cystoscopy was done again and the stone fragments were drained out of the bladder. Then the cystoscope was reintroduced into the bladder over the safety wire and a 6 [place] by 22 cm long JJ stent was advanced on the sensor wire, had its proximal end curling into the kidney and the distal end curling into the bladder. The distal end is connected to a string that was taped to the patient's right groin. The patient was transferred to recovery room in stable and satisfactory condition LINAA ALFARO MD Jan 07, 2019 18:28
[2019-01-08 01:29] VITALS: BP 122/76; PULSE 98; RESP 18
[2019-01-08] MEDS: SOD CHLORIDE 0.9% 1,000 ML IV SCH ×2 (06:05→09:14)
[2019-01-08 07:58] VITALS: BP 138/83; PULSE 70; RESP 18
--- NOTE | 2019-01-08 08:21 | PAC ---
Date/Time of Note Date/Time of Note DATE: 01/08/19 TIME: 08:20 Post-Anesthesia Notes Post-Anesthesia Note Last documented vital signs Vital Signs Date Temp Pulse Resp B/P (MAP) Pulse Ox O2 O2 Flow FiO2 Time Delivery Rate 01/08/19 98.7 70 18 138/83 100 07:58 (101) 01/07/19 Room Air 21:35 01/07/19 8.0 18:45 Activity: WNL Respiratory function: WNL Cardiovascular function: WNL Mental status: Baseline Pain reasonably controlled: Yes Hydration appropriate: Yes Nausea/Vomiting absent: No RAFIQ SHAIKH MD Jan 08, 2019 08:21
[2019-01-08] MEDS: CEFTRIAXONE 1 GM/50 ML (PMX) 50 ML IVPB SCH (08:49)
--- NOTE | 2019-01-08 08:51 | CONS ---
Consult Date/Type/Reason Admit Date/Time Jan 05, 2019 at 11:13 Initial Consult Date 01/05/19 Type of Consultation: Urology Reason for Consultation Distal right ureteral stone Requesting Provider: ÁNGELA BAIN Date/Time of Note DATE: 01/08/19 TIME: 08:49 Subjective Patient is feeling comfortable, she does see some blood in her urine Objective Vitals Vital Signs Date Temp Pulse Resp B/P (MAP) Pulse Ox O2 O2 Flow FiO2 Time Delivery Rate 01/08/19 98.7 70 18 138/83 100 07:58 (101) 01/07/19 Room Air 21:35 01/07/19 8.0 18:45 Intake and Output 01/07/19 01/07/19 01/08/19 1515:00 23:00 07:00 IntakeIntake Total 1330 ml 2708 ml 1890 ml OutputOutput Total 1700 ml 1052 ml 1500 ml BalanceBalance -370 ml 1656 ml 390 ml Exam Abdomen is soft, there is no flank tenderness. Results/Medications Result Diagram: 01/08/19 0458 01/08/19 0458 Results 24 hrs Laboratory Tests Test 01/08/19 04:58 White Blood Count 8.9 Red Blood Count 4.57 Hemoglobin 12.5 Hematocrit 37.9 Mean Corpuscular Volume 82.9 Mean Corpuscular Hemoglobin 27.4 L Mean Corpuscular Hemoglobin Concent 33.0 Red Cell Distribution Width 12.0 Platelet Count 252 Mean Platelet Volume 9.4 Immature Granulocytes % 0.200 Neutrophils % 56.4 Lymphocytes % 34.4 Monocytes % 6.7 Eosinophils % 1.9 Basophils % 0.4 Nucleated Red Blood Cells % 0.0 Immature Granulocytes # 0.020 Neutrophils # 5.0 Lymphocytes # 3.1 H Monocytes # 0.6 Eosinophils # 0.2 Basophils # 0.0 Nucleated Red Blood Cells # 0.0 Sodium Level 140 Potassium Level 3.9 Chloride Level 108 Carbon Dioxide Level 26 Anion Gap 6 Blood Urea Nitrogen 9 Creatinine 0.48 Est Glomerular Filtrat Rate mL/min > 60 Glucose Level 82 Calcium Level 8.6 Home Meds Reported Medications Ferrous Sulfate (Iron) 1 Tab Tablet, 1 TAB PO 08/10/12 Vits W-Ca,Fe,Fa(<1MG) () 1 Tab Tablet, 1 TAB PO 11/11/12 Medications Current Medications IV Flush (NS 3 ml) 3 ml PER PROTOCOL IV ; Start 01/05/19 at 11:30 Ondansetron HCl (Zofran Inj) 4 mg Q6H PRN IV NAUSEA/VOMITING; Start 01/05/19 at 11:30 Acetaminophen (Tylenol Tab) 650 mg Q6H PRN PO .PAIN 1-3 OR TEMP Last administered on 01/06/19 17:09; Admin Dose 650 MG; Start 01/05/19 at 11:30 Acetaminophen/ Hydrocodone Bitart ([place] (5/325)) 1 tab Q6H PRN PO .MOD PAIN 4- 6 Last administered on 01/06/19 20:46; Admin Dose 1 TAB; Start 01/05/19 at 11:30 Morphine Sulfate (morphine) 2 mg Q4H PRN IV .SEVERE PAIN 7-10 Last administered on 01/06/19 10:36; Admin Dose 2 MG; Start 01/05/19 at 11:30 Docusate Sodium (Colace) 100 mg Q12H PRN PO .CONSTIPATION; Start 01/05/19 at 11:30 Magnesium Hydroxide (Milk Of Mag) 30 ml DAILY PRN PO .CONSTIPATION Last administered on 01/07/19at 21:48; Admin Dose 30 ML; Start 01/05/19 at 11:30 Lorazepam (Ativan) 0.5 mg Q6H PRN IV ANXIETY; Start 01/05/19 at 11:30 Sodium Chloride 1,000 ml @ 100 mls/hr Q10H IV Last administered on 01/08/19at 06:05; Admin Dose 100 MLS/HR; Start 01/05/19 at 11:14 Albuterol/ Ipratropium (Duoneb) 3 ml Q4H RESP THERAPY PRN HHN SHORTNESS OF BREATH; Start 01/05/19 at 11:30 Hydralazine HCl (Apresoline) 10 mg Q6H PRN IV ELEVATED BLOOD PRESSURE; Start 01/05/19 at 11:30 Ceftriaxone Sodium 50 ml @ 100 mls/hr Q24H IVPB Last administered on 01/07/19at 08:59; Admin Dose 100 MLS/HR; Start 01/06/19 at 09:00 Nitroglycerin (Nitroglycerin (Sl Tab) 0.4 Mg) 1 tab Q5M PRN SL ANGINA; Start 01/05/19 at 11:30 Assessment/Plan Hospital Course (Demo Recall) 28-year-old female underwent right ureteroscopy, laser lithotripsy and insertion of right ureteral JJ stent for a distal right ureteral stone. She is doing well and has minimal pain. She may be discharged home today on oral pain medications and she should call my office and make an appointment for Saturday to have the stent removed. LIANA ALFARO MD Jan 08, 2019 08:51
[2019-01-08] MEDS ORDERED: HYDR-3601 PO (10:39)
--- NOTE | 2019-01-08 10:39 | PDOCDIS ---
Discharge Instructions CONDITION [id number] Patient Condition: [id number] Stable HOME CARE INSTRUCTIONS: [id number] Diet Instructions: [id number] Low Fat /Cholesterol ACTIVITY: [id number] Activity Restrictions: [id number] Slowly Increase Activity Rest between Activity Avoid heavy lifting FOLLOW UP/APPOINTMENTS Follow-up Plan Please take your medications as prescribed. Please see your doctor in the clinic in the next 1 week. ÁNGELA BAIN Jan 08, 2019 10:39
--- NOTE | 2019-01-08 10:44 | DS ---
Date/Time of Note Date/Time of Note DATE: 01/08/19 TIME: 10:40 Discharge Summary Admission/Discharge Info Admit Date/Time Jan 05, 2019 at 11:13 Discharge Date/Time Discharge Diagnosis 1. Right flank pain-resolving secondary to right kidney stone and also UTI -s tatus post cystoscopy procedure 2. Slightly high triglycerides: Recommended for low-fat low-cholesterol Patient Condition: Stable Procedures Date/Time of Note Date/Time of Note DATE: 01/07/19 TIME: 18:24 Operative Report Procedure Date: Jan 07, 2019 Preoperative Diagnosis Distal right ureteral stone Postoperative Diagnosis Same Operation/Procedure Performed Cystoscopy, right ureteroscopy, laser lithotripsy and insertion of right ureteral JJ stent 6 Persian by 22 cm long Hx of Present Illness 28-year-old female with past medical history of Hypertension during occurred 2 years ago, who has been having right flank pain symptoms have been going on for the last day. She also has been complaining of some chills. Denies any fever. Denies any hematuria. She said she was diagnosed with a UTI recently; it looks like 1 to 2 days ago and was taking some Azo pills, she called them, to treat the UTI, but she experienced right flank pain and was concerned about this and decided to come to the ER. Denies any upper or lower GI bleeding. No significant nausea, vomiting, no fevers, no diarrhea or constipation. When she came in today, she had a CT scan abdomen and pelvis performed that shows signs of moderate right hydroureteronephrosis with 6 mm calculus distal ureter and mild perinephric stranding, small hepatic cyst. She also was found to have a UTI and placed on antibiotics in the ER and is presently admitted to the med/surg unit. Patient also awaiting evaluation by urology team. Hospital Course Patient was admitted and seen by urology team. Patient was started on fluids, pain control medications, antibiotics for possible UTI. She was initially diagnosed with kidney stone as well. She was treated with Flomax and was not able to pass the stone. After couple of days urology team performed cystoscopy for stone removal. Patient tolerated the procedure well, JJ stent was then placed. After she was able to ambulate, tolerated p.o. diet, vital signs are stable. Labs are stable. After getting clearance from urology team patient will be discharged home today in improved condition. She will follow-up with urology team in the clinic in the next few days. See below for full list of discharge medications. Home Meds Active Scripts Hydrocodone Bit-Acetaminophen (Hydrocodone Bit-APAP) 5-325MG Tablet, 1 TAB PO Q6H PRN for .MOD PAIN 4-6, #14 TAB Prov:ÁNGELA BAIN. 01/08/19 Reported Medications Ferrous Sulfate (Iron) 1 Tab Tablet, 1 TAB PO 08/10/12 Discontinued Reported Medications Vits W-Ca,Fe,Fa(<1MG) () 1 Tab Tablet, 1 TAB PO 08/10/12 Follow-up Plan Please take your medications as prescribed. Please see your doctor in the clinic in the next 1 week. Primary Care Provider [facility] Time spent on discharge: > 30 minutes Pending Labs Laboratory Tests Test 01/08/19 04:58 White Blood Count 8.9 10^3/ul (4.8-10.8) Red Blood Count 4.57 10^6/ul (4.20-5.40) Hemoglobin 12.5 g/dl (12.0-16.0) Hematocrit 37.9 % (37.0-47.0) Mean Corpuscular Volume 82.9 fl (82.0-101.0) Mean Corpuscular Hemoglobin 27.4 pg (29.0-33.0) Mean Corpuscular Hemoglobin Concent 33.0 g/dl (32.0-37.0) Red Cell Distribution Width 12.0 % (11.5-14.5) Platelet Count 252 10^3/UL (140-415) Mean Platelet Volume 9.4 fl (7.4-10.4) Immature Granulocytes % 0.200 % (0.001-0.429) Neutrophils % 56.4 % (39.0-77.0) Lymphocytes % 34.4 % (15.0-51.0) Monocytes % 6.7 % (0.0-11.0) Eosinophils % 1.9 % (0.0-7.0) Basophils % 0.4 % (0.0-2.0) Nucleated Red Blood Cells % 0.0 /100WBC (0.0-0.0) Immature Granulocytes # 0.020 10^3/ul (0.0-0.031) Neutrophils # 5.0 10^3/ul (1.6-7.5) Lymphocytes # 3.1 10^3/ul (0.8-2.9) Monocytes # 0.6 10^3/ul (0.3-0.9) Eosinophils # 0.2 10^3/ul (0.0-0.5) Basophils # 0.0 10^3/ul (0.0-0.1) Nucleated Red Blood Cells # 0.0 10^3/ul (0.0-0.0) Sodium Level 140 mmol/L (135-144) Potassium Level 3.9 mmol/L (3.5-5.1) Chloride Level 108 mmol/L (97-110) Carbon Dioxide Level 26 mmol/L (21-31) Anion Gap 6 (5-13) Blood Urea Nitrogen 9 mg/dl (7-20) Creatinine 0.48 mg/dl (0.44-1.00) Est Glomerular Filtrat Rate mL/min > 60 mL/min (>60) Glucose Level 82 mg/dl (70-220) Calcium Level 8.6 mg/dl (8.4-10.2) Microbiology Date/Time Source Procedure Growth Status 01/07/19 17:52 Cystobladder Urine Culture - Preliminary NO GROWTH Resulted AFTER 24 HOURS ÁNGELA BAIN Jan 08, 2019 10:44
== END 2019-01-08 12:25 | disposition home or self-care (01) | DRG 661 ==
LOC: FTE 07:52 → 2NE 11:13
PROVIDERS: ADMIT Hospitalist; ATTEND Hospitalist
PROC: 0T768DZ Dilation of Right Ureter with Intraluminal Device, Via Natural or Artificial Opening Endoscopic (ICD-10-PCS; 2019-01-07)
PROC: 0TC68ZZ Extirpation of Matter from Right Ureter, Via Natural or Artificial Opening Endoscopic (ICD-10-PCS; principal; 2019-01-07 17:30)
DX: N13.6 Pyonephrosis (principal); D64.9 Anemia, unspecified; I10 Essential (primary) hypertension; E78.1 Pure hyperglyceridemia
CPT/HCPCS: 36415; 74018; 74176; 74430; 80048; 80053; 80061; 81001; 81025; 83036; 83690; 83735; 84100; 84439; 84443; 84703; 85025; 85610; 85730; 87086; 88300; 96365; 96375; C2617; J0690; J0696; J1644; J1885; J2250; J2270; J2405; J2765; J3010; J7030; Q9967